=== PATIENT | male | born 1965 | race Caucasian/White ===

== ENCOUNTER 2017-01-03 12:24 | Emergency (ER) | payer OTHER ==
[2017-01-03 12:32] VITALS: TEMP 98.2; O2SAT 95
[2017-01-03 13:04] LABS: % IMMATURE GRANULYOCYTES 0.5 % (0.0-1.1); ABSOLUTE IMMATURE GRANULOCYTES 0.04 10^3/uL (0.00-0.10); ADD DIFF? NO; ADD MORPH? NO; ADD SCAN? NO; ATYPICAL LYMPHOCYTE FLAG 0 (0-99); FRAGMENT RBC FLAG 0 (0-99); HEMATOCRIT 38.6 % (40.0-51.0); HEMOGLOBIN 13.6 g/dL (13.7-17.5); LEFT SHIFT FLG 0 (0-99); LIPEMIA HEMOLYSIS FLAG 90 (0-99); MEAN CELL HEMOGLOBIN 32.4 pg (27.9-34.1); MEAN CELL HEMOGLOBIN CONCENTR. 35.2 g/dL (32.4-36.7); MEAN CELL VOLUME 91.9 fL (81.5-99.8); PLATELET CLUMPS FLAG 0 (0-99); PLATELET COUNT 249 10^3/uL (150-400); RED CELL DISTRIBUTION WIDTH 13.5 % (11.5-15.2)
[2017-01-03 13:16] LABS: ANION GAP 12 mEq/L (8-16); CALCIUM 9.2 mg/dL (8.5-10.4); CARBON DIOXIDE 18 mEq/l (22-31); CHLORIDE 106 mEq/L (97-110); CREATININE 0.6 mg/dL (0.7-1.3); GLOMERULAR FILTRATION RATE > 60; GLUCOSE 94 mg/dL (70-100); POTASSIUM 4.1 mEq/L (3.5-5.2); SODIUM 136 mEq/L (134-144)
[2017-01-03 13:26] LABS: TROPONIN I < 0.012 ng/mL (0-0.034)
--- NOTE | 2017-01-03 13:29 | EDPHY ---
H & P Stated Complaint: cp/hx pericarditis with cardiac tamponade in past/"feels the same" Time Seen by Provider: 01/03/17 12:47 HPI/ROS: CHIEF COMPLAINT: Chest pain reminiscent of prior pericarditis HISTORY OF PRESENT ILLNESS: The patient presents to the ED at the request of his waiter/waitress for evaluation of chest pain. The patient has a history of pericarditis complicated by fairly significant pericardial effusion. The patient has had typical pleuritic and positional chest pain over the past 5 days. He has been using ibuprofen at home with some improvement. The patient was concerned about the duration of his symptoms and his prior history of cardiac tamponade which prompted him to see his waiter/waitress today. The waiter/waitress noted him to have slight tachycardia without a rub. He was referred to the ED for evaluation of possible pericardial effusion. The patient denies any asymmetric calf pain or swelling. The patient states he has very mild pleuritic and positional pain. He denies additional acute complaints. REVIEW OF SYSTEMS: A comprehensive 10 point review of systems is otherwise negative aside from elements mentioned in the history of present illness. Source: Patient Exam Limitations: No limitations - Personal History Current Tetanus/Diphtheria Vaccine: Yes - Medical/Surgical History Hx Asthma: No Hx Chronic Respiratory Disease: No Hx Diabetes: No Hx Cardiac Disease: Yes Hx Renal Disease: No Hx Cirrhosis: No Hx Alcoholism: No Hx HIV/AIDS: No Hx Splenectomy or Spleen Trauma: No Other PMH: hypothyroid, bipolar - Social History Smoking Status: Never smoked - Physical Exam Exam: General Appearance: Alert, no distress Eyes: Pupils equal and round no pallor or injection ENT, Mouth: Mucous membranes moist Respiratory: There are no retractions, lungs are clear to auscultation Cardiovascular: Regular rate and rhythm Gastrointestinal: Abdomen is soft and nontender, no masses, bowel sounds normal Neurological: A&O, normal motor function, normal sensory exam, normal cranial nerves Skin: Warm and dry, no rashes Musculoskeletal: Neck is supple nontender Extremities: symmetrical, full range of motion Constitutional: Initial Vital Signs Temperature (C) 36.8 C 01/03/17 12:30 Heart Rate 104 H 01/03/17 12:30 Respiratory Rate 20 01/03/17 12:30 Blood Pressure 125/90 H 01/03/17 12:30 O2 Sat (%) 95 01/03/17 12:30 O2 Delivery Mode Room Air Allergies/Adverse Reactions: No Known Allergies Allergy (Verified 01/03/17 12:28) Home Medications: Medication Instructions Recorded ARIPiprazole [Abilify 2 mg (*)] 1 mg PO Q48H 05/05/16 Escitalopram Oxalate [Lexapro 10 10 mg PO DAILY 05/05/16 MG] Escitalopram Oxalate [Lexapro] 5 mg PO DAILY 05/05/16 OLANZapine [Olanzapine Odt] 15 mg PO HS 05/05/16 Topiramate [Topamax 25MG (*)] 75 mg PO DAILY 05/05/16 Ibuprofen [Motrin (*)] 600 mg PO TID #90 tab 05/07/16 Levothyroxine [Synthroid 150 mcg 150 mcg PO DAILY06 #30 tab 05/07/16 (*)] Pantoprazole Sodium [Protonix 40mg 40 mg PO DAILY #30 tab 05/07/16 (*)] IBUPROFEN 01/03/17 Medical Decision Making - Diagnostics EKG Interpretation: EKG: Complete interpretation has been separately recorded in the [facility] archive. Summary impression: Sinus tachycardia ED Course/Re-evaluation: The patient had an IV established. A cardiac echocardiogram was obtained which demonstrates only a very small trace pericardial effusion. The patient's EKG does demonstrate a slight tachycardia with changes consistent with likely mild recurrent pericarditis. The patient did undergo a stat echocardiogram which demonstrates no significant pericardial effusion or evidence of tamponade. The patient's D-dimer is negative which I feel adequately excludes pulmonary embolism. The patient's troponin is also normal. The patient was placed on a monitor without evidence of any significant arrhythmia. He had serial examinations by myself in the ED over a 2 hour period. At this point time I do feel the patient can be discharged home with instructions to continue to use nonsteroidal anti-inflammatories. He should follow up with his regular waiter/waitress as scheduled. He is given customary aftercare instructions and return precautions. Differential Diagnosis: Differential diagnosis considered includes pericarditis, pulmonary embolism, acute coronary syndrome, arrhythmia, sinus tachycardia, pericardial effusion, cardiac tamponade - Data Points Laboratory Results: Laboratory Results 01/03/17 12:55 01/03/17 12:55 01/03/17 01/03/17 01/03/17 Unknown 12:55 12:55 WBC 8.75 10^3/uL 10^3/uL (3.80-9.50) RBC 4.20 10^6/uL L 10^6/uL (4.40-6.38) Hgb 13.6 g/dL L g/dL (13.7-17.5) Hct 38.6 % L % (40.0-51.0) MCV 91.9 fL fL (81.5-99.8) MCH 32.4 pg pg (27.9-34.1) MCHC 35.2 g/dL g/dL (32.4-36.7) RDW 13.5 % % (11.5-15.2) Plt Count 249 10^3/uL 10^3/uL (150-400) MPV 10.0 fL fL (8.7-11.7) Neut % (Auto) 78.1 % H % (39.3-74.2) Lymph % (Auto) 11.8 % L % (15.0-45.0) [place] % (Auto) 9.0 % % (4.5-13.0) Eos % (Auto) 0.3 % L % (0.6-7.6) Baso % (Auto) 0.3 % % (0.3-1.7) Nucleat RBC Rel Count 0.0 % % (0.0-0.2) Absolute Neuts (auto) 6.83 10^3/uL H 10^3/uL (1.70-6.50) Absolute Lymphs (auto) 1.03 10^3/uL 10^3/uL (1.00-3.00) Absolute Monos (auto) 0.79 10^3/uL 10^3/uL (0.30-0.80) Absolute Eos (auto) 0.03 10^3/uL 10^3/uL (0.03-0.40) Absolute Basos (auto) 0.03 10^3/uL 10^3/uL (0.02-0.10) Absolute Nucleated RBC 0.00 10^3/uL 10^3/uL (0-0.01) Immature Gran % 0.5 % % (0.0-1.1) Immature Gran # 0.04 10^3/uL 10^3/uL (0.00-0.10) D-Dimer 0.44 ug/mLFEU ug/mLFEU (0.00-0.50) Sodium 136 mEq/L mEq/L (134-144) Potassium 4.1 mEq/L mEq/L (3.5-5.2) Chloride 106 mEq/L mEq/L (97-110) Carbon Dioxide 18 mEq/l L mEq/l (22-31) Anion Gap 12 mEq/L mEq/L (8-16) BUN 7 mg/dL mg/dL (7-23) Creatinine 0.6 mg/dL L mg/dL (0.7-1.3) Estimated GFR > 60 Glucose 94 mg/dL mg/dL (70-100) Calcium 9.2 mg/dL mg/dL (8.5-10.4) Troponin I < 0.012 ng/mL ng/mL (0-0.034) Departure - Departure Disposition: Home, Routine, Self-Care Clinical Impression: Chest pain Pericarditis Qualifiers: Pericarditis type: idiopathic Chronicity: acute Qualified Code(s): I30.0 - Acute nonspecific idiopathic pericarditis Condition: Good Instructions: Acute Pericarditis (ED) Additional Instructions: 1. Take Ibuprofen or Motrin 600 mg by mouth three times a day. 2. Please follow up with your waiter/waitress as scheduled. 3. Your echocardiogram demonstrates no evidence of a significant pericardial effusion. 4. Please return to the ED for markedly worsening symptoms, difficulty breathing or other concerns. Referrals: Lucia Ace MD [Primary Care Provider] - As per Instructions
--- NOTE | 2017-01-03 13:52 | CPEKG ---
Heart Rate: 101 RR Interval: 594 P-R Interval: 176 QRSD Interval: 102 QT Interval: 328 QTC Interval: 426 P [place]: 40 QRS [place]: 59 T Wave [place]: 16 EKG Severity - BORDERLINE ECG - EKG Impression: SINUS TACHYCARDIA EKG Impression: PROBABLE LEFT ATRIAL ABNORMALITY Electronically Signed By: Obinna Rosado 03-Jan-2017 14:33:03
--- NOTE | 2017-01-03 14:36 | ECHO ---
[id number] + + [address] : : [place] [address] : : [phone] + Adult Echocardiographic Report + ------+ :Name: ISIAH HOLCOMB HStudy Date: 01/03/2017 01:31 PM : : Hospital Admission Number: [id number] Loc[place] on: ER: :: 1965 Gender: Male Height: 74 in : :Age: 51 yrs Race: WH Weight: 215 lb : :Reason For Study: Chest Pain : : BSA: 2.2 meter s2 : + ------+ MMode/2D Measurements \T\ Calculations IVSd: 0.94 cm LVIDd: 4.7 cm FS: 34.1 % Ao root diam: LVPWd: 0.75 cm LVIDs: 3.1 cm EDV(Teich): 4.2 cm 101.9 ml LA dimension: ESV(Teich): 4.0 cm 37.6 ml EF(Teich): 63.1 % LVLd ap4: 9.1 cm SV(MOD-sp4): EDV(MOD-sp4): 84.0 ml 117.0 ml LVLs ap4: 7.3 cm ESV(MOD-sp4): 33.0 ml EF(MOD-sp4): 71.8 % Normal Measurement Values: + + :LVIDd (3.5-5.7cm) IVSd (0.6-1.1cm) LVPWd (0.6-1.1cm) Aortic Root (2.0-3.7cm)Left Atrium (1.5-4.0cm): :LV Vol(d) (76-115ml) LV Vol(s) (29-48ml) Ejec Fraction (50-65%)PV Tomas (0.6- 1.2m/s) TV Tomas (0.4-1.0m/s) : :MV E Tomas (0.8-1.0m/s)MV A Tomas (0.3-1.0m/s)LVOT [place] (0.7-1.2m/s) Asc Ao Tomas ( 0.9-1.8m/s) : + + Doppler Measurements \T\ Calculations MV E max tomas: 72.6 cm/sec Ao V2 max: 138.0 cm/sec TR max tomas: 252.0 cm/sec MV A max tomas: 70.6 cm/sec Ao max P.6 mmHg TR max P.4 mmHg MV E/A: 1.0 RAP systole: 5.0 mmHg RVSP(TR): 30.4 mmHg Left Ventricle The left ventricle is normal in size. There is normal left ventricular wall thickness. Left ventricular systolic function is normal. Ejection Fraction = 65%. No regional wall motion abnormalities noted. Right Ventricle The right ventricle is normal in size and function. Atria The left atrial size is normal. Right atrial size is normal. The interatrial septum is intact with no evidence for an atrial septal defect. Mitral Valve The mitral valve is normal in structure and function. There is no evidence of mitral valve prolapse. There is no mitral valve stenosis. There is trace mitral regurgitation. Tricuspid Valve Normal tricuspid valve. There is mild tricuspid regurgitation. Aortic Valve The aortic valve is trileaflet. The aortic valve opens well. There is no aortic stenosis. Trace aortic regurgitation. Pulmonic Valve The pulmonic valve is normal in structure and function. Trace pulmonic valvular regurgitation. Great Vessels The aortic root is normal size. Pericardium/Pleural Trivial anterior pericardial effusion. Conclusion A complete two-dimensional transthoracic echocardiogram was performed (2D, M-mode, Doppler and color flow Doppler). Left ventricular systolic function is normal. Ejection Fraction = 65%. There is trace mitral regurgitation. There is mild tricuspid regurgitation. Trace aortic regurgitation. Trace pulmonic valvular regurgitation. Trivial anterior pericardial effusion Final Reading Physician: Madeleine Evans signed on 01/03/2017 02:34 PM Ordering Physician: Obinna Rosado Performed By: Kaity Robertson, TOICS
[2017-01-03 15:32] VITALS: BP 115/84; PULSE 93; RESP 15
== END 2017-01-03 15:31 | disposition home or self-care (01) ==
DX: I30.0 Acute nonspecific idiopathic pericarditis (principal)